=== PATIENT | male | born 1965 | race Caucasian/White ===

== ENCOUNTER 2017-11-11 09:03 | Emergency (ER) | payer BC ==
[~2017-11-11] VITALS: Ht 182.9 cm; Wt 96.8 kg
[2017-11-11] MEDS ORDERED: FLEXERIL10 MG PO (11:58)
[2017-11-11] MEDS ORDERED: MOTRIN800 MG PO (11:58)
[2017-11-11] MEDS ORDERED: ASPERCREME1 EACH TP (11:58)
[2017-11-11] MEDS ORDERED: PREDNISONE20 MG PO (11:58)
[2017-11-11 12:14] VITALS: BP 156/91
== END 2017-11-11 12:14 | disposition home or self-care (01) ==
LOC: EME 09:03
DX: M54.42 Lumbago with sciatica, left side (principal); M54.41 Lumbago with sciatica, right side; M62.838 Other muscle spasm
CPT/HCPCS: 72100; 99281; 99284; J1885; J7512

== ENCOUNTER → 2018-02-02 | Outpatient (CLI) | payer BC ==
[~2018-02-02] MED LIST: ASPERCREME1 EACH TP; FLEXERIL10 MG PO; MOTRIN800 MG PO; PREDNISONE20 MG PO
== END | disposition home or self-care (01) ==
LOC: CDC 08:15
DX: Z01.810 Encounter for preprocedural cardiovascular examination (principal); K40.90 Unilateral inguinal hernia, without obstruction or gangrene, not specified as recurrent; K42.9 Umbilical hernia without obstruction or gangrene
CPT/HCPCS: 93000